=== PATIENT | female | born 1955 | race Caucasian/White ===

== ENCOUNTER → 2016-12-10 | Outpatient (CLI) | payer BC | LOC: BMCIMAGING 14:23 | PROVIDERS: ATTEND Internal Medicine | DX: M53.3 Sacrococcygeal disorders, not elsewhere classified (principal); M51.37 Other intervertebral disc degeneration, lumbosacral region; M89.38 Hypertrophy of bone, other site ==

== ENCOUNTER → 2016-12-15 | Outpatient (CLI) | payer BC | LOC: BMCIMAGING 08:53 | PROVIDERS: ATTEND Internal Medicine | DX: Z12.31 Encounter for screening mammogram for malignant neoplasm of breast (principal); Z13.820 Encounter for screening for osteoporosis; M85.80 Other specified disorders of bone density and structure, unspecified site | CPT/HCPCS: G0202 ==

== ENCOUNTER → 2016-12-30 | Outpatient (CLI) | payer BC | LOC: BMCIMAGING 09:33 | PROVIDERS: ATTEND Internal Medicine | DX: Z12.39 Encounter for other screening for malignant neoplasm of breast (principal); R92.8 Other abnormal and inconclusive findings on diagnostic imaging of breast | CPT/HCPCS: G0206 ==

== ENCOUNTER → 2017-12-22 | Outpatient (CLI) | payer BC | LOC: BMCIMAGING 09:07 | PROVIDERS: ATTEND Internal Medicine | DX: Z12.31 Encounter for screening mammogram for malignant neoplasm of breast (principal); M17.0 Bilateral primary osteoarthritis of knee ==

== ENCOUNTER → 2018-12-28 | Outpatient (CLI) | payer BC | LOC: BMCIMAGING 08:32 | PROVIDERS: ATTEND Internal Medicine | DX: Z12.31 Encounter for screening mammogram for malignant neoplasm of breast (principal) ==